=== PATIENT | female | born 1970 | race Caucasian/White ===

== ENCOUNTER 2017-01-10 11:53 | Emergency (ER) | payer OTHER ==
[~2017-01-10] VITALS: Ht 157.5 cm; Wt 78.0 kg
[~2017-01-10 11:53] MED LIST: CARI350T PO; HYDR-3498 PO; LANT3I SC; METF500T4 PO; MTF1000T PO; NAPR-260 PO
[2017-01-10 11:56] VITALS: Ht 157.5 cm; Wt 78.0 kg
--- NOTE | 2017-01-10 13:18 | RADRPT ---
PROCEDURE: XR Wrist. CLINICAL INDICATION: Right wrist pain. TECHNIQUE: AP, lateral and oblique views of the right wrist were performed. COMPARISON: No prior studies are available for comparison. FINDINGS: There is a small benign exostosis off the radial side of the distal metadiaphysis of the right radiu s measuring only by 2 mm in size. The bony elements and joint spaces are otherwise normal. IMPRESSION: 1. 3 x 2 mm bony protruberance suspicious for a small osteochondroma arising from the radial side of the distal metadiaphysis of the right radius. 2. Otherwise, unremarkable right wrist. RPTAT:AAJJ Physician Long Date Time Electronically viewed and signed by Physician Long on 01/10/2017 13:18 /
--- NOTE | 2017-01-10 13:20 | RADRPT ---
PROCEDURE: XR Hand. CLINICAL INDICATION: Pain. TECHNIQUE: AP oblique and lateral views of the right hand were obtained. COMPARISON: No prior studies are available for comparison. FINDINGS: There is a small bony projection off the radial side of the distal metadiaphysis of the right radius . The other bony elements and joint spaces are normal. There is a benign bone island in the distal radius. IMPRESSION: 1. 2 x 3 mm osteochondroma off the radial side of the distal right radius. 2. 2 x 5 mm benign bone island in the right radial styloid process. 3. No acute bony fracture. RPTAT:AAJJ Physician Long Date Time Electronically viewed and signed by Aba Perez Physician on 01/10/2017 13:20 /
[2017-01-10] MEDS ORDERED: IBUP-1542 PO (13:34)
[2017-01-10] MEDS ORDERED: PRED20TA PO (13:34)
[2017-01-10] MEDS ORDERED: predniSONE 20 MG TAB PO ONE (14:00)
--- NOTE | 2017-01-10 14:16 | ERD ---
ER Documentation Chief Complaint Date/Time DATE: 01/10/17 TIME: 14:07 Chief Complaint right hand pain HPI Patient is a 46-year-old female who presents to the ED with right wrist and hand pain 3 days. She states that the pain came on suddenly. She states that she has numbness and tingling in her right fifth digit and pain in digits 2 through 5. She states that the pain radiates up her arm. The pain is constant in her hand and wrist. She has a history of carpal tunnel release surgery in 2013. She denies any triggering factors or new onset trauma. She denies headache or dizziness or neck pain. Denies chest pain, cough, shortness of breath or difficulty breathing. Denies weakness or dizziness. Denies abdominal pain, nausea, vomiting or diarrhea. Denies leg pain or swelling. Denies fever or chills. She is not taking any medication for her symptoms. ROS All systems reviewed and are negative except as per history of present illness. Medications Home Meds Active Scripts Ibuprofen* (Motrin*) 600 Mg Tab, 600 MG PO Q6, #30 TAB Prov:NICKO CULVER PA-C 01/10/17 Prednisone* (Prednisone*) 20 Mg Tab, 60 MG PO DAILY for 4 Days, TAB Prov:NICKO CULVER PA-C 01/10/17 Hydrocodone Bit-Acetaminophen* (Datto*) 5-325 Mg Tab, 1 TAB PO Q6 Y for PAIN, # 20 TAB Prov:MARITZA DOUGLAS 03/16/16 Carisoprodol* (Soma*) 350 Mg Tablet, 350 MG PO TID Y for MUSCLE SPASMS, #15 TAB Prov:BOB GONZALEZ MD 07/12/15 Naproxen* (Naprosyn*) 500 Mg Tablet, 500 MG PO BID Y for PAIN AND/OR INFLAMMATION, #30 TAB Prov:BOB GONZALEZ MD 07/12/15 Reported Medications Metformin* (Glucophage*) 1,000 Mg Tablet, 1000 MG PO AT NOON, TAB 07/12/15 Metformin* (Glucophage*) 1,000 Mg Tablet, 1000 MG PO QAM, TAB 07/12/15 Insulin Glargine* (Lantus*) 100 Unit/Ml Soln, 10 UNIT SC AC BREAKFAST, EA 8/20/14 Metformin* (Glucophage*) 500 Mg Tab, 500 MG PO QPM 06/05/11 Allergies Allergies: Coded Allergies: No Known Drug Allergies (Verified Allergy, Mild, 06/05/11) PMhx/Soc History of Surgery: Yes (right hand carpal tunnel sx 06/2014, csectionx3, left knee meniscus, ) Anesthesia Reaction: No Hx Neurological Disorder: No Hx Respiratory Disorders: No Hx Cardiac Disorders: No Hx Psychiatric Problems: No Hx Miscellaneous Medical Probl: Yes (DM ) Hx Alcohol Use: No Hx Substance Use: No Hx Tobacco Use: No Smoking Status: Never smoker Physical Exam Vitals Vital Signs Date Time Temp Pulse Resp B/P Pulse Ox O2 Delivery O2 Flow Rate FiO2 01/10/17 11:56 98.1 93 18 128/91 99 Physical Exam GENERAL: Well-developed, well-nourished female. Appears in no acute distress. NECK: Supple. No lymphadenopathy or thyromegaly. No meningismus. negative kernig. negative brudinski. LUNG: Clear to auscultation bilaterally. No rhonchi, wheezing, rales or coarse breath sounds. HEART: Regular rate and rhythm. No murmurs, rubs or gallops. Extremities: Equal pulses bilaterally. No peripheral clubbing, cyanosis or edema. No unilateral leg swelling. NEUROLOGIC: Alert and oriented. Moving all four extremities. no pain in elbow or shoulder. hyperparesthesia in digits 2-5 of right hand. decrease in sensation of 5th digit. no swelling, erythema, streaking or warmth. 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 positive phalen test. Normal speech. Steady gait. Cranial nerves II through XII intact. SKIN: Normal color. Warm and dry. No rashes or lesions. Capillary refill < 2 seconds Results 24 hrs Current Medications Medications (Trade) Dose Ordered Sig/Shari Route PRN Reason Start Time Stop Time Status Last Admin Dose Admin Prednisone (Prednisone) 60 mg ONCE ONCE PO 01/10/17 14:00 01/10/17 14:01 DC 01/10/17 13:42 Procedures/MDM ER COURSE: I kept the patient and/or family informed of laboratory and diagnostic imaging results throughout the emergency room course. IMAGING STUDIES [place] [id number] Radiology Main Line: [phone] DIAGNOSTIC IMAGING REPORT Patient: TACO FINK : 1970 Age: 46 Sex: F MR #: [id number] DOS: 01/10/17 1226 Ordering MD: NICKO CULVER PA-C Location: [facility] Room/Bed: PROCEDURE: XR Hand. CLINICAL INDICATION: Pain. TECHNIQUE: AP oblique and lateral views of the right hand were obtained. COMPARISON: No prior studies are available for comparison. FINDINGS: There is a small bony projection off the radial side of the distal metadiaphysis of the right radius. The other bony elements and joint spaces are normal. There is a benign bone island in the distal radius. IMPRESSION: 1. 2 x 3 mm osteochondroma off the radial side of the distal right radius. 2. 2 x 5 mm benign bone island in the right radial styloid process. 3. No acute bony fracture. RPTAT:AAJJ Aba Perez Physician Date Time Electronically viewed and signed by Aba Perez Physician on 01/10/2017 13:20 JM/ CC: NICKO CULVER PA-C [place] [id number] Radiology Main Line: [phone] DIAGNOSTIC IMAGING REPORT Patient: TACO FINK : 1970 Age: 46 Sex: F MR #: [id number] DOS: 01/10/17 1226 Ordering MD: NICKO CULVER PA-C Location: [facility] Room/Bed: PROCEDURE: XR Wrist. CLINICAL INDICATION: Right wrist pain. TECHNIQUE: AP, lateral and oblique views of the right wrist were performed. COMPARISON: No prior studies are available for comparison. FINDINGS: There is a small benign exostosis off the radial side of the distal metadiaphysis of the right radius measuring only by 2 mm in size. The bony elements and joint spaces are otherwise normal. IMPRESSION: 1. 3 x 2 mm bony protruberance suspicious for a small osteochondroma arising from the radial side of the distal metadiaphysis of the right radius. 2. Otherwise, unremarkable right wrist. RPTAT:AAJJ Aba Perez Physician Date Time Electronically viewed and signed by Aba Perez Physician on 01/10/2017 13:18 JM/ CC: NICKO CULVER PA-C MEDICATIONS velcro splint. Neurovascularly intact post placement. Prednisone 60 mg. Tolerated well with no adverse reaction. MEDICAL DECISION MAKING: This is a 46-year-old female who presents with right hand pain 3 days. Vital signs were reviewed. Patient is afebrile. Patient is not hypoxic. Patient is not toxic or ill-appearing. I consulted with Dr. Lee regarding this patient. Differential diagnosis includes but is not limited to carpal tunnel syndrome, peripheral neuropathy, diabetic neuropathy, cervical radiculopathy, dislocation, fracture, compartment syndrome. Low suspicion for dislocation, fracture, septic joint, compartment syndrome, osteomyelitis, cellulitis, avascular necrosis, neurological injury, vascular injury, tendon laceration. DISCHARGE: At this time, patient is stable for discharge and outpatient management with no new complaints during the ER course. Patient was sent home with velcro wrist splint, motrin, prednisone. I advised patient to follow up with her PCP for possible MRI referral. Patient will be discharged home with instructions to recheck for new or worsening symptoms such as fever, nausea, weakness, LOC and to follow up with primary care in the next 1-2 days. Patient was advised to return to the ER for any new or worsening symptoms. Plan was discussed and patient and/or family understands and agrees. Home instructions were given. Departure Diagnosis: Primary Impression: Hand pain, right Condition: Stable Patient Instructions: Neuropathy, Peripheral Additional Instructions: Llame al doctor MAANA y magaly livier YUE PARA DENTRO DE 1-2 PAUL.Dgale a la secretaria que nosotros le instruimos hacer esta yue.Avise o llame si mota condicin se empeora antes de la yue. Regresa aqui si peor o no mejor. NICKO CULVER PA-C Jan 10, 2017 14:16
== END 2017-01-10 14:30 | disposition home or self-care (01) ==
LOC: FTE 11:53
DX: M79.641 Pain in right hand (principal); E11.9 Type 2 diabetes mellitus without complications; Z79.4 Long term (current) use of insulin; Z79.84 Long term (current) use of oral hypoglycemic drugs
CPT/HCPCS: 29125; 73110; 73130; J7512

== ENCOUNTER 2017-03-18 12:05 | Emergency (ER) | payer OTHER ==
[~2017-03-18] VITALS: Ht 162.6 cm; Wt 84.0 kg
[~2017-03-18 12:05] MED LIST changes: +IBUP-1542 PO; +PRED20TA PO
[2017-03-18 12:10] VITALS: Ht 162.6 cm; Wt 84.0 kg
[2017-03-18] MEDS ORDERED: IBUP800T25 PO (13:07)
[2017-03-18] MEDS ORDERED: HYDR-906 PO (13:07)
--- NOTE | 2017-03-18 13:15 | ERD ---
ER Documentation Chief Complaint Date/Time DATE: 03/18/17 TIME: 13:13 Chief Complaint lt thumb pain HPI This is a 46-year-old female complaining of pain in her left thumb located at the dorsal aspect of the MCP as well as somewhat on the outer most lateral part of the thumb there is no swelling trauma. The patient says she has carpal tunnel syndrome on the other hand starts to feel like the same as well. However the pain is mostly located at the dorsal region when she bends her finger. ROS All systems reviewed and are negative except as per history of present illness. Medications Home Meds Active Scripts Hydrocodone/Acetaminophen ([place] 5-325 Tablet) 1 Each Tablet, 1 TAB PO Q6H Y for PAIN, #20 TAB Prov:PARKER JIANG. DO 03/18/17 Ibuprofen* (Motrin*) 800 Mg Tab, 800 MG PO Q6H Y for PAIN AND OR ELEVATED TEMP, #30 TAB Prov:ERIC JIANGSTOLOS A. DO 03/18/17 Ibuprofen* (Motrin*) 600 Mg Tab, 600 MG PO Q6, #30 TAB Prov:NICKO CULVER PA-C 01/10/17 Prednisone* (Prednisone*) 20 Mg Tab, 60 MG PO DAILY for 4 Days, TAB Prov:NICKO CULVER PA-C 01/10/17 Hydrocodone Bit-Acetaminophen* ([place]*) 5-325 Mg Tab, 1 TAB PO Q6 Y for PAIN, # 20 TAB Prov:MARITZA DOUGLAS 03/16/16 Carisoprodol* (Soma*) 350 Mg Tablet, 350 MG PO TID Y for MUSCLE SPASMS, #15 TAB Prov:BOB GONZALEZ MD 07/12/15 Naproxen* (Naprosyn*) 500 Mg Tablet, 500 MG PO BID Y for PAIN AND/OR INFLAMMATION, #30 TAB Prov:BOB GONZALEZ MD 07/12/15 Reported Medications Metformin* (Glucophage*) 1,000 Mg Tablet, 1000 MG PO AT NOON, TAB 07/12/15 Metformin* (Glucophage*) 1,000 Mg Tablet, 1000 MG PO QAM, TAB 07/12/15 Insulin Glargine* (Lantus*) 100 Unit/Ml Soln, 10 UNIT SC AC BREAKFAST, EA 06/07/14 Metformin* (Glucophage*) 500 Mg Tab, 500 MG PO QPM 06/05/11 Allergies Allergies: Coded Allergies: No Known Drug Allergies (Verified Allergy, Mild, 06/05/11) PMhx/Soc History of Surgery: Yes (right hand carpal tunnel sx 06/2014, csectionx3, left knee meniscus, ) Anesthesia Reaction: No Hx Neurological Disorder: No Hx Respiratory Disorders: No Hx Cardiac Disorders: No Hx Psychiatric Problems: No Hx Miscellaneous Medical Probl: Yes (DM ) Hx Alcohol Use: No Hx Substance Use: No Hx Tobacco Use: No Smoking Status: Never smoker FmHx Family History: No coronary disease Physical Exam Vitals Vital Signs Date Time Temp Pulse Resp B/P Pulse Ox O2 Delivery O2 Flow Rate FiO2 03/18/17 12:10 98.1 88 16 140/84 99 Physical Exam Const: Well-developed, well-nourished Head: Atraumatic, normocephalic Eyes: Normal Conjunctiva, PERRLA, EOMI, normal sclera, no nystagmus ENT: Normal External Ears, Nose and Mouth, moist mucus membranes. Neck: Full range of motion. No meningismus, no lymphadenopathy. Resp: Clear to auscultation bilaterally, no wheezing, rhonchi, rales Cardio: Regular rate and rhythm, no murmurs, S1 S2 present Abd: Soft, non tender x 4, non distended. Normal bowel sounds, no guarding or rebound, no pulsitile abdominal masses or bruits Skin: No petechiae or rashes, no ecchymosis , no maculopapular rash Back: No midline or flank tenderness Ext: No cyanosis, or edema, FROM x 4, normal inspection, neurovascularly intact x 4, positive Vanesa's test Neur: Awake and alert, STR 5/5 x 4, sensation intact x 4, no focal findings, cerebellum intact Psych: Normal Mood and Affect Procedures/MDM No sign of infection put a thumb spica splint on his follow-up with her hand doctor Departure Diagnosis: Primary Impression: De Quervain's tenosynovitis, left Condition: Stable Patient Instructions: What Is De Quervain Tenosynovitis? PARKER JIANG DO March 18, 2017 13:15
== END 2017-03-18 13:42 | disposition home or self-care (01) ==
LOC: FTE 12:05
DX: M65.4 Radial styloid tenosynovitis [de Quervain] (principal); E11.9 Type 2 diabetes mellitus without complications; Z79.84 Long term (current) use of oral hypoglycemic drugs
CPT/HCPCS: 29125; Z7502

== ENCOUNTER 2018-04-28 14:11 | Emergency (ER) | END 2018-04-28 19:40 | disposition home or self-care (01) ==

== ENCOUNTER 2018-09-14 15:55 | Emergency (ER) | END 2018-09-14 17:15 | disposition home or self-care (01) ==

== ENCOUNTER 2019-02-03 20:03 | Emergency (ER) | payer OTHER ==
[~2019-02-03] VITALS: Ht 154.9 cm; Wt 82.1 kg
[~2019-02-03 20:03] MED LIST changes: +ACET500C5 PO; +GABA300C PO; +HYDR-4011 PO; +IBUP800T48 PO; +METF-849 PO; -METF500T4 PO; -NAPR-260 PO; +NAPR-985 PO; +TRAM50TA2 PO
[2019-02-03 20:08] VITALS: Ht 154.9 cm; Wt 82.1 kg
[2019-02-04] MEDS ORDERED: KETOROLAC 30 MG INJ IM STA (00:22)
[2019-02-04] MEDS ORDERED: morphine 4 MG/ML VIAL IM STA (00:22)
--- NOTE | 2019-02-04 00:22 | ERD ---
ER Documentation Chief Complaint Chief Complaint bilateral hand pain/swelling x3 days, hx of carpel tunnel HPI This is a 48-year-old female presents to emerge department with complaints of bilateral hand pain and swelling for about 3 days. Stated that she has history of carpal tunnel syndrome. Had a surgery to her right hand by hand specialist. Stated that she is being seen by a hand specialist and was referred to physical therapy. Stated that she was also told that she has diabetic neuropathy. LMP: Stated that she has no menstrual periods anymore. . Denies headache, head injury, loss of consciousness, dizziness, neck pain, neck stiffness, throat pain, difficulty swallowing, difficulty breathing lying flat, shoulder pain, chest pain, back pain, abdominal pain, nausea, vomiting, constipation, diarrhea, urinary symptoms, or possibility being , loss of bowel and bladder control, trauma, injury, falls, difficulty w alking due to pain, numbness or tingling sensation, calf pain, recent travel, recent major surgery in the last 3 weeks, calf pain, recent long travel, recent exposure to any illness, recent antibiotic use in the last 3 months, fever, chills, seizures. Past medical history: Diabetes. Carpal tunnel syndrome. Medication: Tramadol. Metformin. Gabapentin. Surgical history: x2. Right hand surgery for carpal tunnel. Social: Denies smoking, use of alcoholic beverages, use of illegal drugs. ROS All systems reviewed and are negative except as per history of present illness. Medications Home Meds Active Scripts Diclofenac Submicronized (Zorvolex) 35 Mg Capsule, 35 MG PO TID PRN for PAIN LEVEL 1-5, #30 CAP Prov:KAREN HERRERA 02/04/19 Acetaminophen* (Tylophen*) 500 Mg Capsule, 1 CAP PO Q6H PRN for PAIN AND OR ELEVATED TEMP, #20 CAP Prov:KURT FAIRCHILD PA-C 09/14/18 Gabapentin* (Neurontin*) 300 Mg Capsule, 300 MG PO TID, #90 CAP Prov:KURT FAIRCHILD PA-C 09/14/18 Ibuprofen* (Motrin*) 600 Mg Tab, 600 MG PO Q6, #30 TAB Prov:MARY ANN DENTON PA-C 04/28/18 Tramadol HCl (Tramadol HCl) 50 Mg Tablet, 50 MG PO Q6 PRN for PAIN, #10 TAB Prov:MARY ANN DENTON PA-C 04/28/18 Hydrocodone/Acetaminophen ([place] 5-325 Tablet) 1 Each Tablet, 1 TAB PO Q6H PRN for PAIN, #20 TAB Prov:PARKER JIANG DO 03/18/17 Ibuprofen* (Motrin*) 800 Mg Tab, 800 MG PO Q6H PRN for PAIN AND OR ELEVATED TEMP, #30 TAB Prov:PARKER JIANG DO 03/18/17 Ibuprofen* (Motrin*) 600 Mg Tab, 600 MG PO Q6, #30 TAB Prov:NICKO CULVER PA-C 01/10/17 Prednisone* (Prednisone*) 20 Mg Tab, 60 MG PO DAILY for 4 Days, TAB Prov:NICKO CULVER PA-C 01/10/17 Hydrocodone Bit-Acetaminophen* ([place]*) 5-325 Mg Tab, 1 TAB PO Q6 PRN for PAIN, #20 TAB Prov:MARITZA DOUGLAS 03/16/16 Carisoprodol* (Soma*) 350 Mg Tablet, 350 MG PO TID PRN for MUSCLE SPASMS, #15 TAB Prov:BOB GONZALEZ MD 07/12/15 Naproxen* (Naprosyn*) 500 Mg Tablet, 500 MG PO BID PRN for PAIN AND/OR INFLAMMATION, #30 TAB Prov:BOB GONZALEZ MD 07/12/15 Reported Medications Metformin* (Glucophage*) 1,000 Mg Tablet, 1000 MG PO AT NOON, TAB 07/12/15 Metformin* (Glucophage*) 1,000 Mg Tablet, 1000 MG PO QAM, TAB 07/12/15 Insulin Glargine* (Lantus*) 100 Unit/Ml Soln, 10 UNIT SC AC BREAKFAST, EA 06/07/14 Metformin* (Glucophage*) 500 Mg Tab, 500 MG PO QPM 06/05/11 Allergies Allergies: Coded Allergies: No Known Drug Allergies (Verified Allergy, Mild, 06/05/11) PMhx/Soc History of Surgery: Yes (C SECTION X 3) Anesthesia Reaction: No Hx Neurological Disorder: No Hx Respiratory Disorders: No Hx Cardiac Disorders: No Hx Psychiatric Problems: No Hx Miscellaneous Medical Probl: Yes (DM) Hx Alcohol Use: No Hx Substance Use: No Hx Tobacco Use: No Smoking Status: Never smoker Physical Exam Vitals Vital Signs Date Temp Pulse Resp B/P (MAP) Pulse Ox O2 O2 Flow FiO2 Time Delivery Rate 02/04/19 98.0 96 17 142/82 97 Room Air 00:51 (102) 02/03/19 98.4 107 18 161/93 98 20:08 (115) Physical Exam Const: No acute distress Head: Atraumatic Eyes: Normal Conjunctiva ENT: Normal External Ears, Nose and Mouth. Neck: Full range of motion. No meningismus. Resp: Clear to auscultation bilaterally Cardio: Regular rate and rhythm, no murmurs Abd: Soft, non tender, non distended. Normal bowel sounds Skin: No petechiae or rashes. Skin is not warm to touch. Skin has no redness. Back: No midline or flank tenderness Ext: No cyanosis, or edema. Bilateral hands: No signs of trauma or injury. Good and full function. No swelling. No deformity. Capillary refills are less than 2 seconds. Has good and full function. 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 Bilateral wrists are unremarkable. Bilateral radial pulses are within normal limits. Bilateral forearm/elbow/humerus/shoulder are unremarkable. No neurovascular deficits. Neur: Awake and alert. No neurological deficits. Psych: Normal Mood and Affect Results 24 hrs Current Medications Medications Dose Sig/Shari Start Time Status Last (Trade) Ordered Route PRN Stop Time Admin Dose Reason Admin Ketorolac 30 mg ONCE STAT 02/04/19 DC 02/04/19 Tromethamine IM 00:22 00:40 (Toradol) 02/04/19 00:23 Morphine 4 mg ONCE STAT 02/04/19 DC 02/04/19 Sulfate IM 00:22 00:40 (morphine) 02/04/19 00:23 Procedures/MDM Diagnostic tests: Clinical exam. Treatment: Toradol IM. Morphine IM. Velcro splint. Re-evaluation: No neurovascular deficit prior to and after the application of splint. Differential diagnosis I have low suspicion for DVT, compartment syndrome, cellulitis, septic joint. Final diagnosis: Chronic pain. Diabetic neuropathy. Carpal tunnel syndrome. Prescription: Diclofenac. Follow-up with PCP in the next 24-48 hours. Follow-up with your hand specialist in the next 24-48 hours. Come back here in the emergency department for any new symptoms or any worsening symptoms. All questions and concerns were answered. Patient and family members verbalized understanding and agreed with plan of care. Hemodynamically stable on discharge. Departure Diagnosis: Primary Impression: Carpal tunnel syndrome Condition: Stable Additional Instructions: Follow-up with PCP in the next 24-48 hours. Follow-up with your hand specialist in the next 24-48 hours. Come back here in the emergency department for any new symptoms or any worsening symptoms. KAREN HERRERA Feb 04, 2019 00:22
[2019-02-04] MEDS ORDERED: DICL35CA PO (00:25)
[2019-02-04 00:51] VITALS: BP 142/82; PULSE 96; RESP 17
== END 2019-02-04 00:51 | disposition home or self-care (01) ==
LOC: FTE 20:03
DX: G56.03 Carpal tunnel syndrome, bilateral upper limbs (principal); E11.9 Type 2 diabetes mellitus without complications; Z79.4 Long term (current) use of insulin
CPT/HCPCS: 29125; 96372; J1885; J2270; Z7502; Z7610